=== PATIENT | male | born 1985 | race Caucasian/White ===

== ENCOUNTER → 2022-02-11 10:55 | Outpatient (CLI) | payer OTHER, SELFPAY ==
--- NOTE | 2022-02-11 | DI.RAD.S_ITS ---
PROCEDURE: XR THORACIC SPINE 2V INDICATIONS: Segmental and somatic dysfunction of lumbar region TECHNIQUE: 3 views of the thoracic spine were acquired. COMPARISON: None. FINDINGS: Bones: No fractures or dislocations. No suspicious bony lesions. 12 pairs of ribs are noted, and appear intact where visualized. Soft tissues: No paravertebral stripe thickening. IMPRESSION: No evidence acute bony abnormality of the thoracic spine. If clinical suspicion and/or symptoms persist, further assessment with repeat plain films, or advanced imaging (e.g., CT, MRI, or bone scan) may be helpful for further assessment. Dictated by: Kulwant Corona M.D. on 02/11/2022 at 12:12 Approved by: Kulwant Corona M.D. on 02/11/2022 at 13:05
--- NOTE | 2022-02-11 | DI.RAD.S_ITS ---
PROCEDURE: XR CERVICAL SPINE 2V OR 3V INDICATIONS: Segmental and somatic dysfunction of lumbar region TECHNIQUE: 3 view(s) of the cervical spine were acquired. COMPARISON: [facility], , XR THORACIC SPINE 2V, 02/11/2022, 10:49. FINDINGS: Bones: No fractures or dislocations to the C7 level. The lateral masses of C1 appear intact on the odontoid view. No suspicious bony lesions. Mild degenerative disc disease at C5-C6. Soft tissues: No prevertebral soft tissue swelling. IMPRESSION: Mild degenerative disc disease at C5-C6. Dictated by: Giuseppe Mckeon M.D. on 02/11/2022 at 12:51 Approved by: Giuseppe Mckeon M.D. on 02/11/2022 at 12:54
--- NOTE | 2022-02-11 | DI.RAD.S_ITS ---
PROCEDURE: XR LUMBAR SPINE 2-3V INDICATIONS: Segmental and somatic dysfunction of lumbar region TECHNIQUE: 3 views of the lumbar spine were acquired. COMPARISON: None. FINDINGS: Bones: 5 [id number] vertebrae are present. There is normal bony alignment. No vertebral body compression fractures. No suspicious bony lesions. Hypertrophic facet joints noted in the lower lumbar spine Soft tissues: Overlying bowel gas pattern is normal. No suspicious soft tissue calcifications. IMPRESSION: Lower lumbar spine arthropathy. No fracture or malalignment. Approved by: Andrea Anderson M.D. on 02/11/2022 at 12:42
== END ==
LOC: PAC 10:57 → RAD 02-13 09:55
PROVIDERS: Referring Provider Chiropractor; Visit Provider Chiropractor
DX: M50.322 Other cervical disc degeneration at C5-C6 level (principal); M47.816 Spondylosis without myelopathy or radiculopathy, lumbar region; M99.01 Segmental and somatic dysfunction of cervical region; M99.03 Segmental and somatic dysfunction of lumbar region; M99.02 Segmental and somatic dysfunction of thoracic region
CPT/HCPCS: 72040; 72070; 72100

== ENCOUNTER → 2022-05-07 13:58 | Outpatient (CLI) | payer OTHER, SELFPAY ==
--- NOTE | 2022-05-07 14:03 | DI.NM.S_ITS ---
PROCEDURE: NM EXERCISE TREADMILL NON NUC COMPARISON: None. INDICATIONS: Dyspnea, unspecified FINDINGS: the patient exercised for 7 minutes and 30 seconds, reaching 10.1 METs, SENIA -38%, and 100% of maximum predicted heart rate. No angina during the study. No ischemic ST changes and no ectopy present. IMPRESSION: Low risk, normal treadmill ECG only stress test with good exercise capacity (10.1 METs, SENIA -38%). No angina and no ischemic changes with exercise. Dictated by: Ariadne Ryan MD on 05/08/2022 at 14:00 Approved by: Ariadne Ryan MD on 05/08/2022 at 14:03
== END ==
PROVIDERS: Referring Provider Internal Medicine Cardiovascular Disease; Visit Provider Internal Medicine Cardiovascular Disease
DX: R06.00 Dyspnea, unspecified (principal)
CPT/HCPCS: 93017